=== PATIENT | female | born 1945 | race Caucasian/White ===

== ENCOUNTER → 2017-06-17 | Outpatient (CLI) | payer MEDICARE ==
--- NOTE | 2017-06-18 12:16 | CONS ---
REASON FOR CONSULTATION: Sleep apnea. Randi is a 71-year-old female patient who is coming to be investigated for sleep apnea. The patient is snoring loud and she reports her sleep quality to be poor and she is waking up tired, fatigued and and refreshed. At times, she had episodes where she is waking up anxious and panicky; however, this has not been occurring frequently, probably once every couple of months. She has been sleeping in various body positions, although she prefers to sleep on her side. She goes to bed around 11 o'clock and she wakes up at 6:30 a.m. in the morning. She averages around 6 or 7 hours of sleep per night. She occasionally wakes up from sleep and this occurs around 2 to 3 times per night and she is able to go back to sleep without any problems. She does not take any naps during the day. She does not fall asleep while driving, although at times she has fought not to fall asleep. She has a previous thyroid surgery, which was complicated by development of a right vocal cord paralysis and since then she has been having chronic hoarseness, this has been confirmed by ENT evaluation and findings. She has history of peripheral neuropathy and restless leg and she has been on a combination of Mirapex and Neurontin. She is taking Mirapex 0.5 mg at bedtime and Neurontin 600 mg p.o. t.i.d. For now her symptoms of restless leg and pain has subsided with above mentioned treatment. PAST MEDICAL HISTORY: 1. Hypothyroidism. 2. Hyperlipidemia. 3. Hypertension. 4. RLS. 5. Environmental allergies. 6. Osteoarthritis. 7. Iatrogenic vocal cord paralysis right sided. Surgical history includes thyroidectomy in November of 2012, cataract surgery in both eyes in 2013, eyelid surgery in 2011 and 2012, tonsillectomy in 1956, pilonidal cyst removed in 1968, Bartholin gland removed in 1978, ganglion cyst removed in 1982. SOCIAL HISTORY: The patient ( ) from 2 to 3 cups of coffee in the morning ; drinks a glass of wine in the evening. She is an ex-smoker. Family history is negative for sleep apnea. REVIEW OF SYSTEMS: Twelve point review of systems was done, positive findings were all mentioned above in history of present illness. Allergies are to PENICILLIN. BP 153/72, pulse 88, respirations 16, temperature 97.6, saturation 97% on room air. Weight is ( ). Height 5 feet 4 inches. Neck size is 15 inches. GENERAL APPEARANCE: Calm, comfortable. HEENT: Mallampati class 4. There is no goiter or neck masses. LUNGS: Clear to auscultation. HEART: Sounds regular rate and rhythm. Normal S1, S2. No S3, no murmurs. Abdomen is soft and nontender. No organomegaly. EXTREMITIES: No edema, no cyanosis or clubbing. IMPRESSION: 1. Increased daytime sleepiness. Polk score of 7. 2. Loud snoring with suspected obstructive sleep apnea. 3. Vocal cord paralysis, iatrogenic, involving the right side of the vocal cord post thyroidectomy. 4. Hypothyroidism. 5. Hyperlipidemia. 6. Hypertension. 7. Restless leg syndrome. Well treated with a combination of Mirapex and Neurontin. 8. Osteoarthritis. PLAN: 1. Continue Mirapex and gabapentin and the treated for RLS has been effective. 2. Will proceed with the home sleep study looking for any significant sleep apnea that will warrant any further treatment. 3. Encourage weight loss. 4. Follow up with ENT regarding right sided vocal cord paralysis. MTDD
== END ==
LOC: SLEEP 13:36
PROVIDERS: ATTEND Internal Medicine Critical Care Medicine
DX: G47.10 Hypersomnia, unspecified (principal); E03.9 Hypothyroidism, unspecified; E78.5 Hyperlipidemia, unspecified; I10 Essential (primary) hypertension; M19.90 Unspecified osteoarthritis, unspecified site; G25.81 Restless legs syndrome; J38.01 Paralysis of vocal cords and larynx, unilateral; Z88.0 Allergy status to penicillin
CPT/HCPCS: 99211